=== PATIENT | male | born 1990 | race African-American/Black ===

== ENCOUNTER 2021-10-06 02:58 | Emergency (ER) | payer SELFPAY ==
[~2021-10-06] VITALS: Ht 172.7 cm; Wt 71.2 kg
[2021-10-06 03:15] VITALS: BP 133/61
[2021-10-06] MEDS ORDERED: POLY119P2 PO (03:30)
== END 2021-10-06 03:42 | disposition home or self-care (01) ==
LOC: ER 03:02
DX: K59.00 Constipation, unspecified (principal); Z60.2 Problems related to living alone